=== PATIENT | male | born 1995 | race Caucasian/White ===

== ENCOUNTER 2021-10-07 07:48 | Outpatient (CLI) | payer BC | END 2021-10-07 10:44 | disposition home or self-care (01) | LOC: LAB 07:48 | PROVIDERS: ATTEND Otolaryngology | DX: Z01.812 Encounter for preprocedural laboratory examination (principal); Z20.822 Contact with and (suspected) exposure to COVID-19 ==

== ENCOUNTER 2021-10-09 10:12 | Day surgery (SDC) | payer BC, OTHER ==
[2021-10-09] MEDS ORDERED: PHENYLEPHRINE 1% (EXTRA STR) NASAL SPRAY NS ONE (10:27)
[2021-10-09] MEDS ORDERED: LIDOCAINE 1%-EPI 1:100,000 20 ML VIAL ONE ×2 (10:27→11:23)
[2021-10-09 10:45] LABS: *BILIRUBIN,URIN 1+ (NEGATIVE); *CLARITY,URINE CLEAR (CLEAR); *COLOR,URINE YELLOW (YELLOW); *KETONES,URINE 1+ (NEGATIVE); *UROBILINOGEN,URINE 0.2 E.U./dl (NORMAL); LEUKOCYTE ESTERASE ,URINE NEGATIVE (NEGATIVE); NITRITE, URINE NEGATIVE (NEGATIVE); UGLUCOSE NEGATIVE (NEGATIVE)
[2021-10-09 10:46] LABS: HEMATOCRIT 45.6 % (36.7-47.1); MEAN CORPUSCULAR HEMOGLOBIN 30.7 uug (23.8-33.4); MEAN CORPUSCULAR VOLUME 89.9 fL (73.0-96.2); PLATELET COUNT (AUTO) 177 K/uL (152-348)
[2021-10-09 10:48] LABS: *BLOOD, URINE TRACE (NEGATIVE)
[2021-10-09 10:51] LABS: CREATININE 0.9 mg/dL (0.6-1.3); POTASSIUM 3.7 mmol/L (3.5-5.1)
[2021-10-09 11:02] LABS: BILIRUBIN,TOTAL 0.9 mg/dL (0.2-1.0)
[2021-10-09] MEDS ORDERED: MIDAZOLAM HCL 2 MG/2 ML VIAL ONE (11:08)
[2021-10-09] MEDS ORDERED: FENTANYL CITRATE 100 MCG/2 ML AMPUL ONE (11:08)
[2021-10-09] MEDS ORDERED: ROCURONIUM BROMIDE 50 MG/5 ML VIAL ONE (11:08)
[2021-10-09 11:43] LABS: RBC,URINE 0-3 /HPF (0-3)
[2021-10-09 11:44] LABS: BACTERIA,URINE FEW /HPF (NONE SEEN); SQUAMOUS EPITHELIAL CELL,UR FEW /HPF (NONE SEEN); WBC,URINE 0-3 /HPF (0-3)
[2021-10-09] MEDS ORDERED: BACITRACIN/POLYMYXIN B OINT 15 GM TUBE ONE (12:08)
[2021-10-09] MEDS ORDERED: HYDROMORPHONE 1 MG/1 ML DISP.SYRIN ONE ×2 (13:56→14:40)
[2021-10-09] MEDS ORDERED: NEOSTIGMINE METHYLSULFATE 10 MG/10 ML VIAL ONE (14:24)
[2021-10-09] MEDS ORDERED: GLYCOPYRROLATE 0.2 MG/ML VIAL ONE (14:24)
[2021-10-09] MEDS ORDERED: PROPOFOL 200 MG/20 ML BOTTLE ONE (14:24)
[2021-10-09] MEDS ORDERED: DEXAMETHASONE SOD PHOSPHATE 4 MG INJ ONE (14:24)
[2021-10-09] MEDS ORDERED: ONDANSETRON 4 MG/2 ML VIAL ONE (14:24)
[2021-10-09] MEDS ORDERED: CEFAZOLIN 1 G VIAL ONE (14:24)
[2021-10-09] MEDS ORDERED: LIDOCAINE-MPF 2% 5 ML VIAL ONE (14:24)
== END 2021-10-09 15:59 | disposition home or self-care (01) ==
LOC: DS 10:12
PROVIDERS: ATTEND Otolaryngology
DX: S02.2XXA Fracture of nasal bones, initial encounter for closed fracture (principal); J34.2 Deviated nasal septum; J34.3 Hypertrophy of nasal turbinates; F41.9 Anxiety disorder, unspecified; F32.9 Major depressive disorder, single episode, unspecified; Z79.899 Other long term (current) drug therapy; Z98.890 Other specified postprocedural states; X58.XXXA Exposure to other specified factors, initial encounter; Y93.89 Activity, other specified; Y92.89 Other specified places as the place of occurrence of the external cause; Y99.8 Other external cause status
CPT/HCPCS: 21320; 30140; 30520; 36415; 80053; 81001; 85025; 85730; J0690; J1100; J1170 ×2; J2250; J2405; J3010; J3490 ×5; J7120; A4663